=== PATIENT | female | born 1965 | race American Indian/Alaskan Native ===

== ENCOUNTER 2019-11-14 22:02 | Emergency (ER) | payer SELFPAY ==
--- NOTE | 2019-11-14 22:29 | Event Note ---
ED Screening Note Date of service: 11/14/19 Time: 22:25 ED Screening Note: This is a 54 y.o. F. that presents to the ER with dizziness and palpitations. 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 She was in the process of boarding a flight when symptoms started. She also reports feeling flushed. EMT at the airport checked her blood pressure and it was elevated. Patient states she was taking OTC cold and flu medication for 2 weeks and not sure if that had something to do with symptoms. Denies syncope This initial assessment/diagnostic orders/clinical plan/treatment(s) is/are subject to change based on patients health status, clinical progression and re- assessment by fellow clinical providers in the ED. Further treatment and workup at subsequent clinical providers discretion. Patient/guardian urged not to elope from the ED as their condition may be serious if not clinically assessed and managed. Initial orders include: Accucheck EKG Labs CXR
[2019-11-14 23:28] LABS: Basophils % (Auto) 0.6 % (0.0-1.8); Eosinophils # (Auto) 0.1 K/mm3 (0.0-0.4); Hematocrit 36.1 % (30.3-42.9); Hemoglobin 11.6 gm/dl (10.1-14.3); Lymphocytes # (Auto) 1.4 K/mm3 (1.2-5.4); Lymphocytes % (Auto) 25.3 % (13.4-35.0); Mean Corpuscular HGB Conc 32 % (30-34); Mean Corpuscular Volume 84 fl (79-97); Monocytes # (Auto) 0.4 K/mm3 (0.0-0.8); Monocytes % (Auto) 7.8 % (0.0-7.3); Platelet Count 217 K/mm3 (140-440); Red Blood Count 4.32 M/mm3 (3.65-5.03); Red Cell Distribution Width 16.5 % (13.2-15.2)
--- NOTE | 2019-11-14 23:32 | XRay Report ---
CHEST 1 VIEW INDICATION / CLINICAL INFORMATION: palpitations. COMPARISON: None available. FINDINGS: SUPPORT DEVICES: None. HEART / MEDIASTINUM: No significant abnormality. LUNGS / PLEURA: Mild pulmonary vascular congestion. The lungs are otherwise well aerated and clear. N o evidence of pneumonia or pleural effusion. No pneumothorax. ADDITIONAL FINDINGS: No significant additional findings. IMPRESSION: 1. Mild pulmonary vascular congestion. No other significant finding. Signer Name: Daly Araiza MD Signed: 11/14/2019 11:27 PM Workstation Name: [id number]
[2019-11-14] MEDS ORDERED: ALPRAZolam 0.5 MG TAB PO ONE (23:46)
--- NOTE | 2019-11-14 23:49 | Emergency Department Report ---
ED General Adult HPI - General Chief complaint: Dizziness Stated complaint: DIZZINESS,HBP,RAPID HR Time Seen by Provider: 11/14/19 22:24 Source: patient, RN notes reviewed Mode of arrival: Ambulatory Limitations: No Limitations - History of Present Illness Initial comments: During the entire history and physical examination, I am nurse's aides teacher and escorted by low altitude air defense officer Renetta De Anda The patient is a pleasant 54-year-old female. She has a history of cosmetic surgery, and reports no chronic medical conditions. Her primary care doctor is at [facility]. The patient reports that she presents to the ER today with a complaint of painless sensation of lightheadedness, and palpitations. She indicates that she felt "faint." Her symptoms started when she was about to get onto a plane. Her symptoms started at 7:50 PM, on November 13. They lasted for 1 minute, resolved, and then came back a few minutes again, lasted for 1 minute, and then resolved. She reports that she typically travels back and forth to [place], a few times a month. There is no leg pain or leg swelling. There is no headache, neck pain, chest pain, abdominal pain, shortness of breath, hematemesis or bright red blood per rectum. She reports no issues with her sleep hygiene, and she reports that she does not consume energy drinks or caffeine stimulants. She indicates that she is feeling "okay" at the moment, just "a little bit anxious." -: Sudden Consistency: now resolved Improves with: none Worsens with: none - Related Data Allergies Allergy/AdvReac Type Severity Reaction Status Date / Time codeine Allergy Unknown Verified 11/14/19 22:32 ED Review of Systems ROS: Stated complaint: DIZZINESS,HBP,RAPID HR Other details as noted in HPI Constitutional: denies: fever Eyes: denies: eye discharge Respiratory: denies: shortness of breath Cardiovascular: palpitations, other (Near syncope, however, no loss of consciousness) Gastrointestinal: denies: nausea, vomiting Genitourinary: as per HPI Musculoskeletal: as per HPI Skin: as per HPI Neurological: as per HPI. denies: headache, weakness, numbness, paresthesias Psychiatric: as per HPI, anxiety ED Past Medical Hx - Past Medical History Previous Medical History?: Yes - Surgical History Past Surgical History?: Yes Additional Surgical History: Left ovary. Tummy Tuck. - Social History Smoking Status: Light Tobacco Smoker Substance Use Type: Alcohol ED Physical Exam - General Limitations: No Limitations General appearance: alert, anxious - Head Head exam: Present: atraumatic, normocephalic - Eye Eye exam: Present: normal appearance, PERRL, EOMI, other (Visual acuity intact to finger counting, color perception, reading at a close distance). Absent: nystagmus - ENT ENT exam: Present: normal exam, normal orophraynx, mucous membranes moist, normal external ear exam - Neck Neck exam: Present: normal inspection, full ROM. Absent: tenderness, meningismus - Respiratory Respiratory exam: Present: normal lung sounds bilaterally. Absent: respiratory distress - Cardiovascular Cardiovascular Exam: Present: regular rate, normal rhythm, normal heart sounds. Absent: bradycardia, tachycardia, irregular rhythm, systolic murmur, diastolic murmur, rubs, gallop - GI/Abdominal GI/Abdominal exam: Present: soft, normal bowel sounds. Absent: distended, tenderness, guarding, rebound, rigid, pulsatile mass - Extremities Exam Extremities exam: Present: normal inspection, full ROM, other (2+ pulses noted in the bilateral upper and lower extremities. There is no palpable cord. negative Homans sign. Muscular compartments are soft. The pelvis is stable.). Absent: pedal edema, joint swelling, calf tenderness - Back Exam Back exam: Present: normal inspection, full ROM. Absent: tenderness, CVA tenderness (R), CVA tenderness (L), paraspinal tenderness, vertebral tenderness - Neurological Exam Neurological exam: Present: alert, oriented X3, normal gait, other (There is no facial droop. The tongue is midline. Extraocular movements are intact bilaterally. There is 5 out of 5 strength in bilateral upper and lower extremities. Sensation is intact to light touch bilateral upper and lower extremities. There is no past-pointing. There is no pronator drift. There is normal [id number]. There is a normal gait.). Absent: motor sensory deficit - Psychiatric Psychiatric exam: Present: normal affect, normal mood, anxious - Skin Skin exam: Present: warm, dry, intact, normal color. Absent: rash ED Course Vital Signs 11/14/19 11/14/19 11/14/19 22:07 22:29 23:35 Temperature 98.2 F 98.2 F 98.2 F Pulse Rate 96 H 93 H 86 Respiratory 18 18 17 Rate Blood Pressure 162/85 162/85 Blood Pressure 152/71 [Left] O2 Sat by Pulse 99 99 97 Oximetry - Reevaluation(s) Reevaluation #1: 11/15/19 00:03 Differential diagnosis, including but not limited to: Orthostasis, vagal event, structural cardiac disease, electrolyte derangement, anxiety, thyroid disease, pulmonary embolism Assessment and plan: 54-year-old female who flies back and [place] to [place] a [place] times [place], with sensation of palpitations, now resolved, and lightheadedness, now resolved. She is afebrile with reassuring vital signs, clinically sober, walking with a steady gait, with a GCS of 15, NIH score of 0, nonfocal unremarkable and normal neurologic examination. At the moment, she is not tachycardic, tachypneic or hypoxic. I performed a bedside transthoracic echocardiogram, which demonstrated no significant pericardial effusion, and ejection fraction of the left ventricle approximately 50 to 55%, with no obvious wall motion abnormalities. The right atrium did not appear to be dilated. She is very anxious at this time. We will place her on a personnel monitor, obtain screening laboratory studies, gi ve her Xanax for symptom control, and reassess. Her EKG is abnormal without prior for comparison, if her initial diagnostics are unremarkable, she will need to follow-up with outpatient cardiology for further evaluation and management. Reevaluation #2: 11/15/19 00:07 X-ray of the chest was ordered prior to my personal evaluation of the patient. The patient is not clinically fluid overloaded. She does not have crackles or rales. She is saturating at 100% on room air. Do not clinically suspect pulmonary vascular congestion, or congestive heart failure. Reevaluation #3: 11/15/19 00:46 Patient resting comfortably, and in no acute distress. Screening laboratory studies unremarkable, including negative d-dimer. Patient observed for greater than 2 hours without clinical decompensation. I have advised the patient to not fly, and to closely follow-up with outpatient cardiology. She was also given a copy of her EKG. She verbalizes understanding. ED Medical Decision Making - Lab Data Result diagrams: 11/14/19 22:54 11/14/19 22:54 Vital Signs 11/14/19 11/14/19 11/14/19 22:07 22:29 23:35 Temperature 98.2 F 98.2 F 98.2 F Pulse Rate 96 H 93 H 86 Respiratory 18 18 17 Rate Blood Pressure 162/85 162/85 Blood Pressure 152/71 [Left] O2 Sat by Pulse 99 99 97 Oximetry Lab Results 11/14/19 11/14/19 Range/Units 22:48 22:54 WBC 5.5 (4.5-11.0) K/mm3 RBC 4.32 (3.65-5.03) M/mm3 Hgb 11.6 (10.1-14.3) gm/dl Hct 36.1 (30.3-42.9) % MCV 84 (79-97) fl MCH 27 L (28-32) pg MCHC 32 (30-34) % RDW 16.5 H (13.2-15.2) % Plt Count 217 (140-440) K/mm3 Lymph % (Auto) 25.3 (13.4-35.0) % [place] % (Auto) 7.8 H (0.0-7.3) % Eos % (Auto) 1.0 (0.0-4.3) % Baso % (Auto) 0.6 (0.0-1.8) % Lymph # 1.4 (1.2-5.4) K/mm3 [place] # 0.4 (0.0-0.8) K/mm3 Eos # 0.1 (0.0-0.4) K/mm3 Baso # 0.0 (0.0-0.1) K/mm3 Seg Neutrophils % 65.3 (40.0-70.0) % Seg Neutrophils # 3.6 (1.8-7.7) K/mm3 POC Glucose 98 (70-105) - EKG Data -: EKG Interpreted by Ct EKG shows normal: sinus rhythm Rate: normal - EKG Data When compared to previous EKG there are: previous EKG unavailable 11/15/19 00:05 There is no prior EKG available for comparison. Sinus rhythm, 89 bpm, normal axis, QTC 449 ms, T wave inversion V2 and V3, left ventricular hypertrophy, the EKG is abnormal, there is no prior for comparison, not a STEMI - Radiology Data Radiology results: report reviewed, image reviewed Print Report Referring Physician: KARRI BECK Patient Name: ADAM WANG Date of : 1965 Sex: Female Report Date: 2019-11-14 Report Status: Finalized Findings [facility] [address] [place] [address] XRay Report Signed Patient: ADAM WANG MR#: [id number] : 1965 Acct:[id number] Age/Sex: 54 / F ADM Date: 11/14/19 Loc: ED Attending Dr: Ordering Physician: MARIO GASCA Date of Service: 0 Procedure(s): XR chest 1V ap Accession Number(s): [id number] cc: MARIO GASCA Fluoro Time In Minutes: CHEST 1 VIEW INDICATION / CLINICAL INFORMATION: palpitations. COMPARISON: None available. FINDINGS: SUPPORT DEVICES: None. HEART / MEDIASTINUM: No significant abnormality. LUNGS / PLEURA: Mild pulmonary vascular congestion. The lungs are otherwise well aerated and clear. No evidence of pneumonia or pleural effusion. No pneumothorax. ADDITIONAL FINDINGS: No significant additional findings. IMPRESSION: 1. Mild pulmonary vascular congestion. No other significant finding. Signer Name: Daly Araiza MD Signed: 11/14/2019 11:27 PM Workstation Name: [id number] Transcribed By: Dictated By: Daly Araiza MD Electronically Authenticated By: Daly Araiza MD Signed Date/Time: 11/14/192326 DD/ 26 TD/TT: Critical care attestation.: If time is entered above; I have spent that time in minutes in the direct care of this critically ill patient, excluding procedure time. ED Disposition Clinical Impression: History of palpitations, Lightheadedness Disposition: DC-01 TO HOME OR SELFCARE Is pt being admited?: No Does the pt Need Aspirin: No Condition: Stable Additional Instructions: Please make certain to drink at least 4 cups of water per day. Avoid consumption of caffeine, coffee, energy drinks and sugary drinks. Recommend that patient follow-up with a print shop chief clerk within the next 7 to 10 days. Recommend that patient not fly until cleared to do so by her primary care doctor or print shop chief clerk. Please return to the emergency room right away with new, worsened or different symptoms, or symptoms not present on the initial emergency room evaluation. Referrals: [facility] [Provider Group] - 3-5 Days [facility] [Provider Group] - 3-5 Days JEOY MARQUES MD [Staff Physician] - 3-5 Days KING HAYDEN MD [Staff Physician] - 3-5 Days Forms: Work/School Release Form(ED)
[2019-11-15 00:27] LABS: Alanine Aminotransferase 21 units/L (7-56); Albumin 4.5 g/dL (3.9-5); BUN/Creatinine Ratio 29; Blood Urea Nitrogen 20 mg/dL (7-17); Calcium 9.7 mg/dL (8.4-10.2); Hemolysis Index 11
[2019-11-15 01:01] VITALS: BP 142/74
== END 2019-11-15 01:03 | disposition home or self-care (01) ==
LOC: ED 22:02
DX: R42 Dizziness and giddiness (principal); R00.2 Palpitations; F17.200 Nicotine dependence, unspecified, uncomplicated
CPT/HCPCS: 36415; 71045; 80053; 82550; 82962; 83735; 84443; 84484; 85025; 85379; 85610; 93005; 93010; 99284